=== PATIENT | male | born 1995 | race Two or more races ===

== ENCOUNTER 2021-07-18 19:48 | Emergency (ER) | payer OTHER, SELFPAY ==
[2021-07-18] MEDS ORDERED: Ketorolac Tromethamine 30 MG/ML VIAL ONE (20:22)
[2021-07-18] MEDS ORDERED: Diazepam 5 MG TAB ONE (20:22)
[2021-07-18] MEDS ORDERED: HYDROcodone/Acetaminophen 5/325 mg Tablet ONE (21:18)
== END 2021-07-18 21:39 | disposition home or self-care (01) ==
LOC: ERS 19:48
DX: S93.115A Dislocation of interphalangeal joint of left lesser toe(s), initial encounter (principal); W22.8XXA Striking against or struck by other objects, initial encounter; Y93.11 Activity, swimming; Y92.34 Swimming pool (public) as the place of occurrence of the external cause
CPT/HCPCS: 28660; 96372; J1885

== ENCOUNTER 2022-03-17 10:55 | Emergency (ER) | payer SELFPAY ==
[2022-03-17] MEDS ORDERED: Cyclobenzaprine 10 MG TAB ONE (11:54)
[2022-03-17] MEDS ORDERED: Ketorolac Tromethamine 30 MG/ML VIAL ONE (11:54)
== END 2022-03-17 12:57 | disposition home or self-care (01) ==
LOC: ERS 10:55
DX: M54.50 Low back pain, unspecified (principal)
CPT/HCPCS: 96372; 99283; J1885